=== PATIENT | female | born 1965 | race Caucasian/White ===

== ENCOUNTER 2017-09-29 14:19 | Emergency (ER) | payer SELFPAY ==
[~2017-09-29] VITALS: Ht 157.5 cm; Wt 79.4 kg
[2017-09-29 14:43] VITALS: BP 138/74
== END 2017-09-29 15:30 | disposition left against medical advice (07) ==
LOC: EME 14:19
DX: S09.90XA Unspecified injury of head, initial encounter (principal); Z53.21 Procedure and treatment not carried out due to patient leaving prior to being seen by health care provider